=== PATIENT | male | born 1930 | race Caucasian/White ===

== ENCOUNTER 2021-06-25 13:10 | Emergency (ER) | payer OTHER ==
[2021-06-25 13:22] VITALS: TEMP 97.4; BMI 26.6
[2021-06-25 15:17] VITALS: BP 176/106; PULSE 88
== END 2021-06-25 15:17 | disposition home or self-care (01) ==
LOC: JER 13:10
DX: L03.115 Cellulitis of right lower limb (principal)
CPT/HCPCS: 93971-TC; 99283-25